=== PATIENT | male | born 1990 | race Caucasian/White ===

== ENCOUNTER → 2022-05-07 | Outpatient (CLI) | payer OTHER | LOC: M SLEEP 20:00 | PROVIDERS: ATTEND Nurse Practitioner Family | DX: G47.33 Obstructive sleep apnea (adult) (pediatric) (principal) ==

== ENCOUNTER → 2022-06-11 | Outpatient (CLI) | payer OTHER | LOC: M PLAIMG 12:40 | DX: J32.9 Chronic sinusitis, unspecified (principal); M25.511 Pain in right shoulder; M25.512 Pain in left shoulder ==